=== PATIENT | male | born 1960 | race Caucasian/White ===

== ENCOUNTER 2019-02-25 16:46 | Emergency (ER) | payer OTHER ==
--- NOTE | 2019-02-25 18:07 | EDM.PDOC ---
ED HPI GENERAL MEDICAL PROBLEM - General Chief Complaint: General Stated Complaint: CHEST PAIN Time Seen by Provider: 02/25/19 17:20 Source of Information: Reports: Patient History Limitations: Reports: No Limitations - History of Present Illness INITIAL COMMENTS - FREE TEXT/NARRATIVE: 58-year-old male who is been feeling fairly constant sensation of a tightness in his chest and slight shortness of breath for the past several weeks. Somewhat worse with activity but no real pain. He has gained some weight and wanted to start exercising, so [facility] to discuss getting [facility] to be able to exercise and they sent him to the emergency room. He has just a faint sensation of discomfort but it is constant and present almost 24 hours a day. Denies any nausea or vomiting, cough, unexplained weight loss, or previous cardiac history. He chews smokeless tobacco and has some family history of heart disease. Onset: Unknown/Unsure Duration: Week(s): (Symptoms have been ongoing for several weeks to months) Location: Reports: Chest Worsens with: Reports: Other (Somewhat worse with activity) Associated Symptoms: Reports: Chest Pain (Very slight pressure, no real pain), Shortness of Breath (Intermittent mild shortness of breath especially with activity). Denies: Confusion, Cough, Loss of Appetite, Weakness - Related Data Allergies Allergy/AdvReac Type Severity Reaction Status Date / Time No Known Allergies Allergy Verified 02/25/19 17:09 Home Meds: Home Meds Gabapentin [Neurontin] 1,200 mg PO TID 02/25/19 [History] Past Medical History HEENT History: Reports: Impaired Vision Musculoskeletal History: Reports: Arthritis, Back Pain, Chronic, Neck Pain, Chronic Neurological History: Reports: None Endocrine/Metabolic History: Reports: Obesity/BMI 30+ - Infectious Disease History Infectious Disease History: Reports: Measles, Mumps - Past Surgical History Head Surgeries/Procedures: Reports: None Endocrine Surgical History: Reports: None Neurological Surgical History: Reports: Spinal Fusion, Other (See Below) Other Neurological Surgeries/Procedures: hardware removal Musculoskeletal Surgical History: Reports: None Dermatological Surgical History: Reports: None Social & Family History - Tobacco Use Smoking Status *Q: Never Smoker Second Hand Smoke Exposure: No - Caffeine Use Caffeine Use: Reports: Coffee, Soda - Recreational Drug Use Recreational Drug Use: No ED ROS GENERAL - Review of Systems Review Of Systems: See Below Constitutional: Denies: Fever, Chills, Malaise HEENT: Reports: No Symptoms Respiratory: Reports: Shortness of Breath (With activity) Cardiovascular: Reports: Chest Pain (As mentioned in HPI) GI/Abdominal: Reports: No Symptoms Musculoskeletal: Reports: No Symptoms Skin: Reports: No Symptoms Neurological: Reports: No Symptoms Psychiatric: Reports: No Symptoms ED EXAM, GENERAL - Physical Exam Exam: See Below Exam Limited By: No Limitations General Appearance: Alert, No Apparent Distress Eye Exam: Bilateral Eye: Normal Inspection Head: Atraumatic Neck: Normal Inspection Respiratory/Chest: No Respiratory Distress, Lungs Clear Cardiovascular: Regular Rate, Rhythm, No Murmur GI/Abdominal: Soft, Non-Tender Extremities: Normal Inspection. No: Pedal Edema Neurological: Alert, Oriented, No Motor/Sensory Deficits Psychiatric: Normal Affect, Normal Mood Skin Exam: Warm, Dry Course - Vital Signs Last Recorded V/S: Last Vital Signs Temp 99.0 F 02/25/19 17:11 Pulse 76 02/25/19 18:15 Resp 24 H 02/25/19 18:15 BP 146/92 H 02/25/19 18:15 Pulse Ox 94 L 02/25/19 18:15 - Orders/Labs/Meds Labs: Laboratory Tests 02/25/19 02/25/19 Range/Units 17:59 17:59 WBC 6.7 (4.5-11.0) K/uL RBC 4.61 (4.30-5.90) M/uL Hgb 14.6 (12.0-15.0) g/dL Hct 43.1 (40.0-54.0) % MCV 94 (80-98) fL MCH 32 H (27-31) pg MCHC 34 (32-36) % Plt Count 239 (150-400) K/uL Neut % (Auto) 48 (36-66) % Lymph % (Auto) 38 (24-44) % Callahan % (Auto) 12 H (2-6) % Eos % (Auto) 2 (2-4) % Baso % (Auto) 1 (0-1) % Sodium 141 (140-148) mmol/L Potassium 3.9 (3.6-5.2) mmol/L Chloride 105 (100-108) mmol/L Carbon Dioxide 25 (21-32) mmol/L Anion Gap 10.7 (5.0-14.0) mmol/L BUN 22 H (7-18) mg/dL Creatinine 1.7 H (0.8-1.3) mg/dL Est Cr Clr Drug Dosing 47.36 mL/min Estimated GFR (MDRD) 42 L (>60) Glucose 95 (74-106) mg/dL Calcium 8.6 (8.5-10.1) mg/dL Troponin I < 0.017 (0.000-0.056) ng/mL - Re-Assessments/Exams Free Text/Narrative Re-Assessment/Exam: 02/25/19 18:18 Cardiac monitoring shows a normal sinus rhythm. Two-view chest x-ray, CBC, CMP and troponin were obtained. Chest x-ray was normal. 02/25/19 18:32 Creatinine was 1.7 and GFR 42. When this was brought up with the patient, he did mention that [facility] were concerned about his [facility] function and told him to cut back on aspirin. Copies of the labs were given to the patient so we can call the [facility] on Thursday and compare the levels. The rest of his labs were reassuring, troponin was 0. He will be set up for a Cardiolite stress test next week. Departure - Departure Time of Disposition: 18:45 Disposition: Home, Self-Care 01 Clinical Impression: Atypical chest pain Renal failure Qualifiers: Renal failure chronicity: chronic Chronic kidney disease stage: stage 2 (mild) Qualified Code(s): N18.2 - Chronic kidney disease, stage 2 (mild) - Discharge Information Instructions: Nonspecific Chest Pain, Rius-ob-Conf Referrals: Judy Serna MD [Primary Care Provider] - Forms: ED Department Discharge Care Plan Goals: Consider decreasing your gabapentin to 800 mg 3 times a day, return next week for the Cardiolite stress test as scheduled. [facility] to discuss your kidney function, and any further evaluation or testing that may be necessary. Return to the emergency room at any time if your chest pain is worsening or you develop other concerns. Sepsis Event Note - Evaluation Sepsis Screening Result: No Definite Risk - Focused Exam Date Exam was Performed: 02/26/19 Time Exam was Performed: 07:28
--- NOTE | 2019-02-28 10:47 | CRLCR ---
Final Report: INDICATION: Dyspnea TECHNIQUE: Chest 2 views. COMPARISON: None. FINDINGS: Cardiovascular and mediastinum: Heart size and vasculature are normal in caliber and appearance. Mediastinum is within normal limits. Lungs and pleural spaces: Lungs are clear. No sign of infiltrate or mass. No sign of pleural effusion. No pneumothorax. Bones and soft tissues: No significant findings. IMPRESSION: Unremarkable chest. Dictated by: Billy Marshall MD @ 02/25/2019 18:26:41 Signed by: Billy Marshall MD @02/25/2019 6:26:41 PM (Electronic Signature) MTDD
== END 2019-02-25 18:45 | disposition home or self-care (01) ==
LOC: JP.ED 16:46
DX: R07.89 Other chest pain (principal); N18.2 Chronic kidney disease, stage 2 (mild); F17.220 Nicotine dependence, chewing tobacco, uncomplicated; E66.9 Obesity, unspecified; Z68.31 Body mass index [BMI] 31.0-31.9, adult
CPT/HCPCS: 36415; 71046; 80048; 84484; 85025; 99285-25

== ENCOUNTER 2025-02-17 07:15 | Day surgery (SDC) | payer OTHER ==
[2025-02-17] MEDS ORDERED: Propofol 200 MG/20 ML SDV ONE (07:20)
[2025-02-17] MEDS ORDERED: Midazolam 1 MG/ML 2 ML SDV ONE (07:20)
[2025-02-17] MEDS ORDERED: fentaNYL 50 MCG/ML SDV ONE (07:21)
[2025-02-17] MEDS: Lactated Ringers 1,000 ML IV SCH (07:49)
== END 2025-02-17 10:59 | disposition home or self-care (01) ==
LOC: JP.SDS 07:15
PROVIDERS: ATTEND Surgery
DX: Z12.11 Encounter for screening for malignant neoplasm of colon (principal); D12.0 Benign neoplasm of cecum; K62.1 Rectal polyp; I10 Essential (primary) hypertension; E66.9 Obesity, unspecified; Z88.8 Allergy status to other drugs, medicaments and biological substances; Z68.30 Body mass index [BMI] 30.0-30.9, adult; Z79.899 Other long term (current) drug therapy
CPT/HCPCS: 00811-QZ; J2250; J2704; J3010; J7120